=== PATIENT | female | born 1985 | race Caucasian/White ===

== ENCOUNTER → 2020-05-29 | Outpatient (CLI) | payer BC, MEDICAID ==
[~2020-05-29] MED LIST: MOTRIN 800800 MG/TAB PO; PRENATAL TABLET PO
== END ==
LOC: COL.LAB
DX: Z20.828 Contact with and (suspected) exposure to other viral communicable diseases (principal)

== ENCOUNTER 2020-06-02 06:56 | Inpatient (IN) | payer BC, MEDICAID ==
[2020-06-02] VITALS (31 sets, daily range): BP systolic 117–146; BP diastolic 56–94; PULSE 52–116; TEMP 97.7–98.5
[~2020-06-02] VITALS: Ht 172.7 cm; Wt 144.1 kg
--- NOTE | 2020-06-02 07:05 | NUR ---
0705- PT AMBULATORY TO THE FLOOR WITH SUPPORT PERSON BY HER SIDE. ORIENTED TO THE ROOM AND CHANGED INTO HER GOWN. PT REPORTS GFM, NO BLOOD, NO CTX AND SMALL MUCUS LIKE DISCHARGE. 0710- EFM AND TOCO ON AND TRACING INTERMITTENTLY DUE TO MATERNAL SIZE. RN REMAINS AT BEDSIDE ADJUSTING MONITORS. IV STARTED, FLUIDS RUNNING, ASSESSMENT AND VITALS COMPLETED, CONSENTS SIGNED AND PLAN FOR THE DAY DISCUSSED. CALL LIGHT WITHIN REACH.
[2020-06-02] MEDS ORDERED: PRENATAL TABLET PO (07:35)
[2020-06-02 07:54] LABS: BASO % 0.3 % (0.0-2.0); EOS # 0.1 (0.0-0.7); EOS % 0.7 % (0-4.0); GRAN # 7.1 (1.4-6.5); GRAN % 75.8 % (42.2-75.2); HEMOGLOBIN 12.1 g/dl (12.5-16.0); LYMPH # 1.6 (1.2-3.4); LYMPH % 16.8 % (20.0-51.0); MEAN CELL VOLUME 97 fl (80.0-100.0); MEAN CORPUSCULAR HEMOGLOBIN 33 pg (27.0-31.0); MEAN CORPUSCULAR HGB CONC 34 g/dl (33.0-37.0); MEAN PLATELET VOLUME 9.9 fl (7.4-10.4); MONO # 0.6 (0.1-0.6); MONO % 6.2 % (1.7-9.3); PLATELET COUNT 268 K/mm3 (130-400); RED BLOOD COUNT 3.71 M/mm3 (4.10-5.30); REDCELL DISTRIBUTION WIDTH-CV 13.1 % (11.5-14.5)
[2020-06-02 07:59] LABS: HEMATOCRIT 35.9 % (37.0-47.0)
--- NOTE | 2020-06-02 08:15 | NUR ---
0807- DR. CALHOUN TO BEDSIDE. PLAN FOR THE DAY DISCUSSED AND QUESTIONS ANSWERED. RN REMAINS AT BEDSIDE. 0808- SVE /-2. 0809- AROM BY PROVIDER WITH MODERATE AMOUNT OF CLEAR FLUID NOTED. 0810- [facility] AND INTERNAL HEART MONITOR PLACED BY PROVIDER.
--- NOTE | 2020-06-02 08:45 | NUR ---
0830- [facility] not tracing well, Dr Davis at nurses station. 0844- Dr Davis at bedside, [facility] replaced without difficulty, cough response positive. Pt tolerated well. MD off unit and to clinic.
[2020-06-02] MEDS ORDERED: MOTRIN 800800 MG/TAB PO (09:51)
--- NOTE | 2020-06-02 11:15 | NUR ---
1104- FHT DECELERATION NOTED DOWN TO 90'S. RN TO BEDSIDE. PT STATES SHE REPOSITIONED HERSELF TO LL. REPOSITIONED TO WR BY RN. FLUID BOLUS GIVEN. 1105- FHR RETUNED TO BASELINE OF 140'S. RN REMAINS AT BEDSIDE WATCHING STRIP. FLUID BOLUS STOPPED.
--- NOTE | 2020-06-02 12:15 | NUR ---
1200- LATE DECELERATION NOTED ON THE MONITOR. RN TO BEDSIDE. 1201- SVE 7//-2. RN REMAINS AT BEDSIDE. 1203- MOTHER REPOSITIONED TO LL AND RIGHT LEG IN STIRRUP. DECELERATION NOTED DOWN TO 80S. 1204- Wanda LEAL RN AND Sofi LEVIN RN TO BEDSIDE TO HELP. 1206- PT REPOSITINED TO RL. FHR NOTED TO NOT BE GETTING BETTER. 1209- PT REPOSITIONED TO WR 1210- FHT BACK TO BASELINE OF 130S AND MAINTAINING BASELINE. CALL LIGHT WITHIN REACH. PROVIDER NOTIFIED, SEE PHYSICIAN NOTIFICATION NOTES.
--- NOTE | 2020-06-02 13:15 | NUR ---
1258- DR. CALHOUN TO BEDSIDE. SVE COMPLETE. 1300- ROUSE REMOVED WITH 250ML OF URINE NOTED FOR OUTPUT. PT AND ROOM PREPPED FOR DELIVERY. RN REMAINS AT BEDSIDE. 1305- PT BEGINS PUSHING. 1308- OF VIABLE MALE . BROUGHT TO MOTHERS ABDOMEN WHERE NURSERY NURSE ASSUMES CARE AT THIS TIME. PITOCIN STOPPED. 1311- OF PLACENTA. 2ND DEGREE TEAR NOTED BY PHYSICIAN. FUNDUS MASSAGED TO FIRM BY PROVIDER WITH MODERATE AMOUNT OF BLOOD AND SOME SMALL CLOTS NOTED. PITOCIN STARTED AT 333ML/HR PER PROTOCOL. REPAIR DONE. FUNDUS MASSAGED TO FIRM AGAIN BY RN WITH CLOTS MANUALLY REMOVED BY PROVIDER. EBL NOTED TO BE 300 BY PROVIDER. 1315- RECOVERY STARTED. VITALS STABLE. PT AND ROOM CLEANED UP AND BED PUT BACK TOGETHER. FUNDUS NOTED TO BE FIRM WITH MODERATE AMOUNT OF BLEEDING. ICEPACK TO PERIAREA AND LINENS CHANGED.
[2020-06-03 02:00] VITALS: BP 140/87; PULSE 92; TEMP 97.7
[2020-06-03 09:48] VITALS: BP 133/83; PULSE 89; TEMP 98.3
== END 2020-06-03 16:30 | disposition home or self-care (01) | DRG 807 ==
LOC: LDR 06:56 → OB 06:56
PROVIDERS: ADMIT Obstetrics & Gynecology
PROC: 10E0XZZ Delivery of Products of Conception, External Approach (ICD-10-PCS; principal; 2020-06-02)
PROC: 10907ZC Drainage of Amniotic Fluid, Therapeutic from Products of Conception, Via Natural or Artificial Opening (ICD-10-PCS; 2020-06-02)
PROC: 3E033VJ Introduction of Other Hormone into Peripheral Vein, Percutaneous Approach (ICD-10-PCS; 2020-06-02)
DX: O99.214 Obesity complicating childbirth (principal); Z37.0 Single live birth; O70.1 Second degree perineal laceration during delivery; Z3A.39 39 weeks gestation of pregnancy
CPT/HCPCS: J2590; J7120

== ENCOUNTER 2021-09-21 15:48 | Day surgery (SDC) | payer BC, MEDICAID ==
[~2021-09-21] VITALS: Ht 172.7 cm; Wt 133.3 kg
--- NOTE | 2021-09-21 15:55 | NUR ---
Patient ambulated to bay #7 without difficulty. Weight obtained. Vitals obtained. Consent signed. Patient was admitted with a R AC IV, it flushes well. Patient used the BR to void and changed into her gown. Warm blanket provided and non-slip socks are on. First & last name + verified with patient. Patient verbalized understanding of the procedure. SEE PHYSICAL ASSESSMENT. Call noble is within reach. Side rails x2
[2021-09-21] MEDS ORDERED: ONE-A-DAY ESSE1 EACH PO (16:45)
[2021-09-21] MEDS ORDERED: AMOXICILLIN 8751 TAB PO (17:39)
[2021-09-21] MEDS ORDERED: PYRIDIUM 100MG100 MG PO (17:39)
[2021-09-21] MEDS ORDERED: NORCO 325 MG-51 TAB PO (17:40)
[2021-09-21 18:25] VITALS: BP 110/60; PULSE 80
--- NOTE | 2021-09-21 18:25 | NUR ---
Patient to room 317 from the PACU, A&Ox4. VSS. IV CDI, fluids infusing. Voided upon arrival to the room, steady on feet. Denies pain and discomfort. Post op VS monitored. No further needs expressed. Call light within reach
[2021-09-21 18:40] VITALS: BP 109/54; PULSE 60
[2021-09-21 18:55] VITALS: BP 110/60; PULSE 61; TEMP 97.4
[2021-09-21 19:10] VITALS: BP 109/54; PULSE 63; TEMP 97.4
[2021-09-21 19:40] VITALS: BP 121/71; PULSE 63; TEMP 97.4
[2021-09-21 20:10] VITALS: BP 108/55; PULSE 80; TEMP 98.2
--- NOTE | 2021-09-21 20:37 | NUR ---
PT PROVIDED DISCHARGE INSTRUCTIONS WELL PACKET. PT VERBALIZES UNDERSTANDING OF DISCHARGE INSTRUCTIONS. ALL QUESTIONS/ CONCERNS ANSWERED. PT DIET PROGRESSED WITHOUT N,V,D. SHE HAS URINATED AND REPORTS MILD BURNING. VSS POST OP'S WNL. L AC IV DC'D. PT TRANSPORTED OUT VIA WHEELCHAIR BY MEDICAL STAFF AT 2019.PT BELONGINGS WITH HER.
== END 2021-09-21 20:20 | disposition home or self-care (01) ==
LOC: SDCO 15:48 → MEDICAL 18:25 → SDCO 20:20
DX: N13.2 Hydronephrosis with renal and ureteral calculous obstruction (principal); Z87.891 Personal history of nicotine dependence
CPT/HCPCS: OP; C1769; J0690; J1100; J2405; J2704; J3010; Q9967